=== PATIENT | female | born 1940 | race Caucasian/White ===

== ENCOUNTER 2017-06-06 06:43 | Day surgery (SDC) | payer MEDICARE, OTHER ==
[~2017-06-06 06:43] MED LIST: KETOROLAC TROMETHAMINE 0.45% 4 DROP/0.4 ML DROPERETTE OD PRN
[2017-06-06] MEDS ORDERED: CHONDR SU A NA/HYALUR INTRAOC KIT (SURGICARE) ONE (07:07)
[2017-06-06] MEDS ORDERED: EPINEPHRINE INJ/PF 1 MG/1 ML AMPULE ONE (07:07)
[2017-06-06] MEDS: BESIFLOXACIN HCL 0.6% OPH SUSP 5 ML BOTTLE OD PRN ×3 (07:17→08:21)
[2017-06-06] MEDS: TROPICAMIDE 1% OPH SOLN 3 ML OD PRN ×3 (07:17→07:37)
[2017-06-06] MEDS: TETRACAINE HCL 0.5% OPH SOLN 0.6 ML DROPERETTE OD PRN ×2 (07:17→07:52)
[2017-06-06] MEDS: CYCLOPENTOLATE 0.2%/PHENYLEPHRINE 1% OPH SOLN 2 ML OD PRN ×3 (07:17→07:37)
[2017-06-06] MEDS ORDERED: MIDAZOLAM 2 MG/2 ML INJ ONE (07:28)
[2017-06-06] MEDS: BUPIVACAINE HCL 0.75% INJ/PF (7.5 MG/1 ML) 10 ML SDV OD PRN ×2 (07:50→08:10)
[2017-06-06] MEDS: LIDOCAINE 4% INJ/PF (40 MG/ML) 5 ML AMPUL OD PRN ×2 (07:50→08:10)
--- NOTE | 2017-06-06 09:13 | [facility] OPERATIVE REPORT E ---
[facility] Operative Report NAME: RONALD CAMACHO AGE: 76Y DATE OF SURGERY: 06/06/2017 ROOM: PREOPERATIVE DIAGNOSIS: Cataract, right eye. POSTOPERATIVE DIAGNOSIS: Cataract, right eye. OPERATION: Phacoemulsification with posterior chamber intraocular lens, right eye. SURGEON: SOPHIE BRYAN M.D. ANESTHESIA: Topical with MAC with intraocular lidocaine. INDICATIONS FOR SURGERY: Difficulty reading road signs. Best corrected visual acuity 20/50. PROCEDURE: The patient was brought to the Operating Room and placed on the operative table. Following tetracaine drops, topical anesthesia was administered. This consisted of instrument wipe pledgets soaked in a solution of 4% Xylocaine mixed with 0.75% Marcaine in a 1:2 ratio. A 2 x 1 cm pledget was placed in the superior fornix. A 1 x 1 cm pledget was placed in the inferior fornix. The eye was patched shut for 5 minutes. The patch was removed. The eye was sterilely prepped and draped in the usual manner. Lid speculum was placed in the eye. The pledgets were removed. 4-0 black silk sutures were placed around the superior and the inferior rectus muscles to be used as traction. A conjunctival peritomy was made at the 10 o'clock position. Hemostasis was obtained with bipolar cautery. A posterior limbal groove was created using a crescent knife and dissected anteriorly towards the cornea. A sharp point blade was used to create a paracentesis site at the 2 o'clock position. A 2.4 mm keratome was used to enter the anterior chamber through the groove. Viscoelastic was injected into the anterior chamber. An anterior capsulotomy was performed using Utrata forceps in a capsulorrhexis fashion. Hydrodissection and hydrodelineation were performed. Phacoemulsification was performed in [id number]-kbk-hjupenz technique. A total of 4.98 CDE phaco time was used. Following this, the I/A unit was used to remove residual cortex. Viscoelastic was injected into the capsular bag. Intraocular lens model SN60WF, 20.0 diopters, serial number [id number] was placed in the capsular bag. The I/A unit was used to remove residual viscoelastic. The wound was seen to be watertight under high and low pressure, and no sutures were placed. The intraocular lens was well centered. The pressure was adjusted in the eye to normal pressure. The 4-0 black silk sutures and lid speculum were removed. The eye was shielded after Besivance drops were placed. The patient tolerated the procedure well and was sent to the Recovery Room in good condition. DICTATING PHYSICIAN: SOPHIE BRYAN M.D. DICTATING PHYSICIAN: SOPHIE BRYAN M.D. [id number] PHY#: [id number] ID: [id number] JOB#: [id number] ACCT: [id number] cc:SOPHIE BRYAN M.D. >
--- NOTE | 2017-06-06 09:19 | [facility] DISCHARGE SUMMARY E ---
[facility] Discharge Summary NAME: RONALD CAMACHO AGE: 76Y ADMITTED: 06/06/2017 DISCHARGED: HOSPITAL COURSE: The patient is a 76-year-old lady who underwent uneventful cataract extraction with intraocular lens implant right eye on 06/06/2017. She will be discharged to home. She is instructed to resume preoperative medications and take Tylenol as needed for discomfort, to keep her eye shielded, to use Durezol, ketorolac, and Vigamox at 3 p.m. and 8 p.m. Follow up in my office in one day. DICTATING PHYSICIAN: SOPHIE BRYAN M.D. [id number] PHY#: [id number] ID: [id number] JOB#: [id number] ACCT: [id number] cc:SOPHIE BRYAN M.D. >
[2017-06-06] MEDS ORDERED: LIDOCAINE 1% INJ-PF (10 MG/ML) 30 ML SDV ONE (11:23)
== END 2017-06-06 09:10 | disposition home or self-care (01) ==
LOC: SC 06:43
PROVIDERS: ATTEND Ophthalmology
PROC: 08RJ3JZ Replacement of Right Lens with Synthetic Substitute, Percutaneous Approach (ICD-10-PCS; principal; 2017-06-06 08:00)
DX: H25.813 Combined forms of age-related cataract, bilateral (principal); H35.363 Drusen (degenerative) of macula, bilateral; H04.123 Dry eye syndrome of bilateral lacrimal glands; K21.9 Gastro-esophageal reflux disease without esophagitis; Z79.899 Other long term (current) drug therapy; Z87.891 Personal history of nicotine dependence
CPT/HCPCS: 66984; V2632; J2250; J3490 ×4; A9270; J0171

== ENCOUNTER 2017-07-04 08:37 | Day surgery (SDC) | payer MEDICARE, OTHER ==
[~2017-07-04 08:37] MED LIST changes: +BESIFLOXACIN HCL 0.6% OPH SUSP 5 ML BOTTLE OS PRN; +BUPIVACAINE HCL 0.75% INJ/PF (7.5 MG/1 ML) 10 ML SDV OS PRN; +CYCLOPENTOLATE 0.2%/PHENYLEPHRINE 1% OPH SOLN 2 ML OS PRN; -KETOROLAC TROMETHAMINE 0.45% 4 DROP/0.4 ML DROPERETTE OD PRN; +KETOROLAC TROMETHAMINE 0.45% 4 DROP/0.4 ML DROPERETTE OS PRN; +LIDOCAINE 4% INJ/PF (40 MG/ML) 5 ML AMPUL OS PRN; +TETRACAINE HCL 0.5% OPH SOLN 0.6 ML DROPERETTE OS PRN; +TROPICAMIDE 1% OPH SOLN 3 ML OS PRN
[2017-07-04] MEDS ORDERED: EPINEPHRINE INJ/PF 1 MG/1 ML AMPULE ONE (09:09)
[2017-07-04] MEDS ORDERED: LIDOCAINE 1% INJ-PF (10 MG/ML) 30 ML SDV ONE (09:10)
[2017-07-04] MEDS ORDERED: CHONDR SU A NA/HYALUR INTRAOC KIT (SURGICARE) ONE (09:10)
[2017-07-04] MEDS: TROPICAMIDE 1% OPH SOLN 3 ML OS PRN ×3 (09:45→10:05)
[2017-07-04] MEDS: CYCLOPENTOLATE 0.2%/PHENYLEPHRINE 1% OPH SOLN 2 ML OS PRN ×3 (09:45→10:05)
[2017-07-04] MEDS: TETRACAINE HCL 0.5% OPH SOLN 0.6 ML DROPERETTE OS PRN ×2 (09:45→10:14)
[2017-07-04] MEDS: BESIFLOXACIN HCL 0.6% OPH SUSP 5 ML BOTTLE OS PRN ×4 (09:46→10:57)
[2017-07-04] MEDS ORDERED: MIDAZOLAM 2 MG/2 ML INJ ONE (10:12)
[2017-07-04] MEDS ORDERED: FENTANYL CITRATE INJ/PF 100 MCG/2 ML AMPUL ONE (10:13)
--- NOTE | 2017-07-04 11:08 | [facility] DISCHARGE SUMMARY E ---
[facility] Discharge Summary NAME: RONALD CAMACHO AGE: 76Y ADMITTED: 07/04/2017 DISCHARGED: 07/04/2017 PREOPERATIVE DIAGNOSIS: Cataract, left eye. POSTOPERATIVE DIAGNOSIS: Cataract, left eye. HOSPITAL COURSE: The patient is a 76-year-old lady who underwent uneventful cataract extraction with intraocular lens implant, left eye, on 07/04/2017. She will be discharged to home. She was instructed to resume preoperative medications, take Tylenol as needed for discomfort, to keep her eye shielded, to use Durezol, ketorolac, and Vigamox at 3 p.m. and 8 p.m., and to followup in my office in 1 day. DICTATING PHYSICIAN: SOPHIE BRYAN M.D. [id number] PHY#: [id number] ID: [id number] JOB#: [id number] ACCT: [id number] cc:SOPHIE BRYAN M.D. >
--- NOTE | 2017-07-04 11:09 | [facility] OPERATIVE REPORT E ---
[facility] Operative Report NAME: RONALD CAMACHO AGE: 76Y DATE OF SURGERY: 07/04/2017 ROOM: PREOPERATIVE DIAGNOSIS: Cataract, left eye. POSTOPERATIVE DIAGNOSIS: Cataract, left eye. PROCEDURE PERFORMED: Phacoemulsification with posterior chamber intraocular lens, left eye. SURGEON: Cherise Bryan MD ANESTHESIA: Topical with MAC. INDICATIONS FOR SURGERY: Difficulty with balance following cataract surgery in the right eye. Best corrected visual acuity 20/50. PROCEDURE: The patient was brought to the operating room and placed on the operative table. Following tetracaine drops, topical anesthesia was administered. This consisted of instrument wipe pledgets soaked in a solution of 4% Xylocaine mixed with 0.75% Marcaine in a 1:2 ratio. A 2 x 1 cm pledget was placed in the superior fornix. A 1 x 1 cm pledget was placed in the inferior fornix. The eye was patched shut for 5 minutes. The patch was removed. The eye was sterilely prepped and draped in the usual manner. Lid speculum was placed in the eye. The pledgets were removed. 4-0 black silk sutures were placed around the superior and the inferior rectus muscles to be used as traction. A conjunctival peritomy was made at the 10 o'clock position. Hemostasis was obtained with bipolar cautery. A posterior limbal groove was created using a crescent knife and dissected anteriorly towards the cornea. A sharp point blade was used to create a paracentesis site at the 2 o'clock position. A 2.4 mm keratome was used to enter the anterior chamber through the groove. Viscoelastic was injected into the anterior chamber. An anterior capsulotomy was performed using Utrata forceps in a capsulorrhexis fashion. Hydrodissection and hydrodelineation were performed. Phacoemulsification was performed in [id number]-[id number] technique. A total of 6.47 CDE phaco time was used. Following this, the I/A unit was used to remove residual cortex. Viscoelastic was injected into the capsular bag. Intraocular lens model SN60WF, 19.0 diopters, serial number [id number] was placed in the capsular bag. The I/A unit was used to remove residual viscoelastic. The wound was seen to be watertight under high and low pressure, and no sutures were placed. The intraocular lens was well centered. The pressure was adjusted in the eye to normal pressure. The 4-0 black silk sutures and lid speculum were removed. The eye was shielded after Besivance drops were placed. The patient tolerated the procedure well and was sent to the recovery room in good condition. DICTATING PHYSICIAN: CHERISE BRYAN M.D. [id number] PHY#: [id number] ID: [id number] JOB#: [id number] ACCT: [id number] cc:CHERISE BRYAN M.D. > MTDD
== END 2017-07-04 11:44 | disposition home or self-care (01) ==
LOC: SC 08:37
PROVIDERS: ATTEND Ophthalmology
PROC: 08RK3JZ Replacement of Left Lens with Synthetic Substitute, Percutaneous Approach (ICD-10-PCS; principal; 2017-07-04 10:30)
DX: H25.812 Combined forms of age-related cataract, left eye (principal); Z96.1 Presence of intraocular lens; K21.9 Gastro-esophageal reflux disease without esophagitis; Z79.899 Other long term (current) drug therapy; Z87.891 Personal history of nicotine dependence
CPT/HCPCS: 66984; V2632; J2250; J3490 ×4; A9270; J0171; J3010; 142

== ENCOUNTER 2018-07-10 12:09 | Emergency (ER) | payer MEDICARE, OTHER ==
[2018-07-10 12:59] LABS: ABSOLUTE EOSINOPHILS # (AUTO) 0.2 10^3/uL (0.0-0.6); ABSOLUTE LYMPHOCYTES (AUTO) 1.2 10^3/uL (0.5-4.7); ABSOLUTE MONOCYTES (AUTO) 0.5 10^3/uL (0.1-1.4); ABSOLUTE NEUT (AUTO) 8.1 10^3/uL (1.7-8.2); BASOPHILS % (AUTO) 0.4 % (0-2); EOSINOPHILS % (AUTO) 1.7 % (0-6); HEMATOCRIT 42.2 % (36.0-47.0); MEAN CORPUSCULAR HGB CONC 33.2 g/dL (32.0-36.0); MEAN CORPUSCULAR VOLUME 84 fl (80-97); MONOCYTES % (AUTO) 4.7 % (3-13); PLATELET COUNT 245 10^3/uL (150-450); RED BLOOD COUNT 5.01 10^6/uL (3.72-5.28); SEGMENTED NEUTROPHILS % (AUTO) 81.2 % (42-78); TOTAL CELLS COUNTED % (AUTO) 100 %
--- NOTE | 2018-07-10 13:08 | EKG REPORT ---
SEVERITY:- BORDERLINE ECG - SINUS RHYTHM BORDERLINE T ABNORMALITIES, INFERIOR LEADS : Confirmed by: John Bansal MD 10-Jul-2018 13:07:21
[2018-07-10 13:28] LABS: CREATINE KINASE MB 0.67 ng/mL (<4.55)
[2018-07-10 13:31] LABS: TROPONIN I < 0.012 ng/mL
[2018-07-10 13:32] LABS: ALANINE AMINOTRANSFERASE 18 U/L (9-52); ALBUMIN 4.3 g/dL (3.5-5.0); ALKALINE PHOSPHATASE 77 U/L (38-126); ANION GAP 8 (5-19); ASPARTATE AMINO TRANSFERASE 35 U/L (14-36); BILIRUBIN,DIRECT 0.1 mg/dL (0.0-0.4); BILIRUBIN,TOTAL 0.4 mg/dL (0.2-1.3); BLOOD UREA NITROGEN 19 mg/dL (7-20); CARBON DIOXIDE 25 mmol/L (22-30); CHLORIDE 107 mmol/L (98-107); CREATINE KINASE 42 U/L (30-135); GLUCOSE 139 mg/dL (75-110); POTASSIUM 4.3 mmol/L (3.6-5.0); SODIUM 140.4 mmol/L (137-145); TOTAL PROTEIN 7.2 g/dL (6.3-8.2)
[2018-07-10 14:06] LABS: APPEARANCE,URINE CLEAR; BILIRUBIN,URINE NEGATIVE (NEGATIVE); COLOR,URINE YELLOW; GLUCOSE, URINE NEGATIVE (NEGATIVE); KETONES,URINE NEGATIVE (NEGATIVE); LEUKOCYTE ESTERASE,URINE NEGATIVE (NEGATIVE); NITRITE,URINE NEGATIVE (NEGATIVE); PROTEIN,URINE NEGATIVE (NEGATIVE); URINE SPECIFIC GRAVITY 1.014; UROBILINOGEN,URINE NEGATIVE mg/dL (<2.0)
[2018-07-10] MEDS ORDERED: LISINOPRIL 5 MG TABLET PO ONE (14:17)
--- NOTE | 2018-07-10 16:02 | ER Document Report ---
ED Syncope and Near Syncope - General Chief Complaint: Near Syncope Stated Complaint: SYNCOPE Time Seen by Provider: 07/10/18 12:48 Primary Care Provider: ELLE CALVO, SHIPPING/RECEIVING MANAGER [Primary Care Provider] - Follow up as needed Notes: Patient says she was sitting and reading the pain upper this morning when she felt like she was going to lose consciousness and felt like she was going to . She never actually lost consciousness. She was able to get up and walk to another room. She felt her heart beating very hard and fast. This whole episode lasted about a minute. She is never had this before and is not there now. She is moving all 4 extremities without difficulty. She did have some pain in the left chest, towards the upper inner aspect of the left breast which she says she has had pain in that location for about 25 years. This is no different than previously. Denies any shortness of breath or difficulty breathing. No nausea or vomiting. No fever or chills. Has no history of any heart disease. Patient has had a hysterectomy. Hypertension on no current medications. Plans to see her PA Monday to have her blood pressure rechecked. Her only medication is Premarin. Patient thinks she may have been very anxious. She is only been for a couple of years. Does not indicate any problems with her marriage. TRAVEL OUTSIDE OF THE [place] IN LAST 30 DAYS: No - Related Data Allergies/Adverse Reactions: No Known Allergies Allergy (Verified 06/06/17 07:21) Past Medical History - Social History Smoking Status: Never Smoker Chew tobacco use (# tins/day): No Frequency of alcohol use: None Drug Abuse: None Family History: Reviewed & Not Pertinent Patient has suicidal ideation: No Patient has homicidal ideation: No - Past Medical History Cardiac Medical History: Denies: Hx Heart Attack, Hx Hypertension Pulmonary Medical History: Denies: Hx Asthma Neurological Medical History: Denies: Hx Cerebrovascular Accident, Hx Seizures GI Medical History: Denies: Hx Hepatitis, Hx Hiatal Hernia, Hx Ulcer Infectious Medical History: Denies: Hx Hepatitis Past Surgical History: Reports: Hx Hysterectomy Review of Systems - Review of Systems Notes: REVIEW OF SYSTEMS: CONSTITUTIONAL : Denies fever. EENT: Denies eye, ear, nose or mouth or throat pain or other symptoms. CARDIOVASCULAR: See HPI. RESPIRATORY: Denies cough, chest congestion, or shortness of breath. GASTROINTESTINAL: Denies abdominal pain or nausea, vomiting, or diarrhea. GENITOURINARY: Denies difficulty or painful urinating, urinary frequency, blood in urine. MUSCULOSKELETAL: Denies back or neck pain. Denies joint pain or swelling. SKIN: Denies rash or skin lesions. NEUROLOGICAL: Denies LOC or altered mental status. Denies sensory loss or motor deficits. ALL OTHER SYSTEMS REVIEWED AND NEGATIVE. Physical Exam - Vital signs Vitals: Resp BP Pulse Ox 18 185/76 H 98 07/10/18 13:01 07/10/18 13:01 07/10/18 13:01 Interpretation: Hypertensive - Minimal with systolics in the 60s and 70s.. No: Hypotensive Notes: PHYSICAL EXAMINATION: GENERAL: Well-appearing, in no acute distress. Anxious. HEAD: Atraumatic, normocephalic. EYES: Pupils equal round and reactive to light, extraocular movements intact. ENT: oropharynx clear without exudates. Moist mucous membranes. NECK: Normal range of motion, supple. LUNGS: Breath sounds clear and equal bilaterally. Very minimal tenderness of the left upper inner left breast. No masses. HEART: Regular rate and rhythm without murmurs. ABDOMEN: Soft, nontender. No guarding or rebound. No masses. BACK: No tenderness throughout entire back. EXTREMITIES: Normal range of motion without pain. NEUROLOGICAL: Normal speech, normal gait. Normal sensory, motor, and reflex exams. Awake, alert, and oriented x3. Cranial nerves normal. PSYCH: Normal mood, normal affect. SKIN: Warm, dry, no rashes. Course - Re-evaluation Re-evalutation: 07/10/18 20:55 Blood pressure remains somewhat elevated on the 5 mg of lisinopril. - Vital Signs Vital signs: Temp Pulse Resp BP Pulse Ox 18 162/77 H 93 07/10/18 16:01 07/10/18 16:01 07/10/18 16:01 - Laboratory Result Diagrams: 07/10/18 12:32 07/10/18 12:32 Laboratory results interpreted by me: 07/10/18 07/10/18 12:32 12:32 Seg Neutrophils % 81.2 H Lymphocytes % 12.0 L Glucose 139 H - EKG Interpretation by Ok EKG shows normal: Sinus rhythm Rate: Normal Rhythm: NSR Discharge - Discharge Clinical Impression: Near syncope, Hypertension Condition: Stable Disposition: HOME, SELF-CARE Additional Instructions: NEAR SYNCOPAL EPISODE: Syncope or near syncope (fainting or near-fainting) can occur from many different health problems. Or it can be a simple fainting spell requiring no treatment. It is safe for you to go home, but further evaluation will likely be necessary. Your work-up may include tests for internal bleeding, heart disease, medication problems, or near-strokes. Tests are not always required, however, depending on the nature of your problem. The warning signs of an impending faint include: dizziness, lightheadedness, nausea, hot flashes, tingling, and weakness. If this happens, lay down and put your feet up, then wait until all of these symptoms have passed before standing up again. If these episodes become recurrent, or if you develop chest pain, heart palpitations, mental confusion, blurred vision, or headache, then you should c all the physician, or go to the emergency room. HIGH BLOOD PRESSURE REQUIRING TREATMENT: Your blood pressure is high. This is called "hypertension." Today's reading was (normal is less than 140/90). Your history and exam suggest that this is not a temporary problem. You need treatment of your blood pressure. If left untreated, high blood pressure greatly increases your risk of heart attack and stroke. Please don't ignore this problem. If you have blood pressure medicine but aren't using it regularly, start taking it again. Some simple things you can do to help are: Get some aerobic exercise for at least 20 minutes on a daily basis. (See your doctor before beginning any new exercise program.) Eat a low-fat diet. Lose excess weight. Avoid salty foods and avoid adding salt to any of the foods you eat. Avoid diet pills, decongestants, "energizing" herbs, and other medicines that elevate blood pressure. There are many different medicines that treat blood pressure. If your medication causes unpleasant side effects, call your doctor. There are others you can try. Treating hypertension is a life-long investment in your health. ANGIOTENSIN CONVERTING ENZYME INHIBITOR MEDICATION: "JOSELITO inhibitor" drugs are used to lower high blood pressure (or to reduce the "work" of the heart in patients with heart failure). These drugs block an enzyme that makes your blood vessels constrict and makes you retain salt. The result is lower blood pressure. JOSELITO inhibitors cause few side effects. The most common side effect is a dry nagging cough. Occasionally, lightheadedness may occur while you get used to the medicine. Some patients may retain extra potassium (this is a problem if you are taking potassium supplements, potassium-containing salt substitutes, or a potassium-retaining drug such as triamterene, spironolactone, or amiloride). If you are taking lithium, the lithium level must be rechecked after starting an JOSELITO inhibitor. JOSELITO inhibitors should NOT be used during . Contact the doctor or return if you develop severe lightheadedness, wheeze, weakness, palpitations or other new symptoms. NORMAL EXAM AND WORKUP: At this time, except for your blood pressure being elevated, your examination and workup show no significant abnormality. No significant abnormal physical findings were noted. All laboratory, EKG, and imaging (x-ray, CT scans, ultrasound) studies that were ordered show no significant abnormality. Although your examination and all studies that were ordered showed no significant abnormal finding, there are no examinations and no studies that are 100% accurate. There is always the possibility that some abnormality could exist and not be detected with physical examination or within the limits and capabilities of laboratory and other studies. You should return or follow up as you were instructed on your visit today for further evaluation if your symptoms do not resolve. FOLLOW-UP CARE: If you have been referred to a physician for follow-up care, call the physicians office for an appointment as you were instructed or within the next two days. If you experience worsening or a significant change in your symptoms, notify the physician immediately or return to the Emergency Department at any time for re-evaluation. Keep the appointment that you have scheduled at your medical providers office on Monday. Prescriptions: Lisinopril [Prinivil 5 mg Tablet] 5 mg PO DAILY #10 tablet Referrals: ELLE CALVO NP [Primary Care Provider] - Follow up as needed
[2018-07-10 16:14] VITALS: BP 162/77
== END 2018-07-10 16:19 | disposition home or self-care (01) ==
LOC: ER 12:09
DX: R55 Syncope and collapse (principal); I10 Essential (primary) hypertension; Z90.710 Acquired absence of both cervix and uterus
CPT/HCPCS: 93005; 99283; 36415; 82553; 82550; 85025; 80053; 81001; 84484; 93010; A9270

== ENCOUNTER 2018-08-03 23:54 | Emergency (ER) | payer MEDICARE, OTHER ==
--- NOTE | 2018-08-04 | ER Document Report ---
ED Medical Screen (RME) - General Stated Complaint: WEAKNESS Time Seen by Provider: 08/03/18 23:55 Primary Care Provider: ELLE CALVO NP [Primary Care Provider] - Follow up as needed Notes: PT PRESENTS VIA EMS FOR HIGH BLOOD PRESSURE, NUMBNESS RIGHT SIDE OF FACE, LEFT LOWER LEG, WEAKNESS AND MARVIN, SYMPTOMS STARTED AT 2100. HX OF TIA LAST MONTH I have greeted and performed a rapid initial assessment of this patient. A comprehensive ED assessment and evaluation of the patient, analysis of test results and completion of the medical decision making process will be conducted by additional ED providers. TRAVEL OUTSIDE OF THE [place] IN LAST 30 DAYS: No - Related Data Allergies/Adverse Reactions: No Known Allergies Allergy (Verified 06/06/17 07:21) Past Medical History - Past Medical History Cardiac Medical History: Denies: Hx Heart Attack, Hx Hypertension Pulmonary Medical History: Denies: Hx Asthma Neurological Medical History: Denies: Hx Cerebrovascular Accident, Hx Seizures Renal/ Medical History: Denies: Hx Peritoneal Dialysis GI Medical History: Denies: Hx Hepatitis, Hx Hiatal Hernia, Hx Ulcer Infectious Medical History: Denies: Hx Hepatitis Past Surgical History: Reports: Hx Hysterectomy. Denies: Hx Mastectomy, Hx Open Heart Surgery, Hx Pacemaker Physical Exam - Vital signs Vitals: Pulse Ox 97 08/04/18 00:19 Course - Vital Signs Vital signs: Temp Pulse Resp BP Pulse Ox 88 16 213/88 H 98 08/04/18 00:57 08/04/18 00:57 08/04/18 00:57 08/04/18 00:57 - Laboratory Result Diagrams: 08/04/18 01:30 08/04/18 01:30 Doctor's Discharge - Discharge Referrals: ELLE CALVO NP [Primary Care Provider] - Follow up as needed
[2018-08-04] MEDS ORDERED: HYDROCHLOROTHIAZIDE 25 MG TABLET PO ONE (00:33)
--- NOTE | 2018-08-04 00:35 | RADIOLOGY REPORT (SQ) ---
EXAM DESCRIPTION: CT HEAD WITHOUT IV CONTRAST COMPLETED DATE/TME: 08/03/2018 23:56 CLINICAL HISTORY: 77 years, Female, MARVIN, NUMBNESS, ? STROKE SYMPTOMS Technique: Contiguous axial images of the brain were obtained without the administration of intravenous contrast. Coronal and sagittal reformats obtained and reviewed. This exam was performed according to our departmental dose-optimization program which includes use of Automated Exposure Control, adjustment of the mA and/or kV according to patient size and/or use of iterative reconstruction technique. Findings: Brain: No hemorrhage. No territorial infarct. No mass effect. No herniation. Ventricles: Within normal limits for patient's age. Bones: No acute osseous abnormality. Paranasal sinuses: Unremarkable. Mastoid air cells: Unremarkable. Soft tissues: No acute abnormality. IMPRESSION: No acute intracranial abnormalities.
--- NOTE | 2018-08-04 00:55 | RADIOLOGY REPORT (SQ) ---
EXAM DESCRIPTION: XR CHEST 1 VIEW COMPLETED DATE/TME: 08/03/2018 23:56 CLINICAL HISTORY: 77 years, Female, MARVIN, NUMBNESS, ? STROKE SYMPTOMS COMPARISON: None. NUMBER OF VIEWS: TECHNIQUE: LIMITATIONS: None. FINDINGS: Somewhat limited examination due to overexposure of the x-ray. No evidence of pulmonary infiltrate or pleural effusion. The heart and mediastinum are unremarkable. Pulmonary vascularity appears normal. IMPRESSION: No acute finding. copyright 2010 [employer]- All Rights Reserved
[2018-08-04] MEDS ORDERED: LISINOPRIL 10 MG TABLET PO ONE (01:38)
[2018-08-04 01:41] LABS: ABSOLUTE BASOPHILS # (AUTO) 0.1 10^3/uL (0.0-0.2); ABSOLUTE EOSINOPHILS # (AUTO) 0.2 10^3/uL (0.0-0.6); ABSOLUTE LYMPHOCYTES (AUTO) 1.6 10^3/uL (0.5-4.7); ABSOLUTE MONOCYTES (AUTO) 0.5 10^3/uL (0.1-1.4); ABSOLUTE NEUT (AUTO) 8.5 10^3/uL (1.7-8.2); BASOPHILS % (AUTO) 1.1 % (0-2); EOSINOPHILS % (AUTO) 1.8 % (0-6); HEMATOCRIT 42.1 % (36.0-47.0); HEMOGLOBIN 14.2 g/dL (12.0-15.5); LYMPHOCYTES % (AUTO) 14.9 % (13-45); MEAN CORPUSCULAR HEMOGLOBIN 28.1 pg (27.0-33.4); MEAN CORPUSCULAR HGB CONC 33.7 g/dL (32.0-36.0); MEAN CORPUSCULAR VOLUME 83 fl (80-97); MONOCYTES % (AUTO) 4.9 % (3-13); PLATELET COUNT 275 10^3/uL (150-450); RED BLOOD COUNT 5.05 10^6/uL (3.72-5.28); SEGMENTED NEUTROPHILS % (AUTO) 77.3 % (42-78); TOTAL CELLS COUNTED % (AUTO) 100 %
[2018-08-04 01:44] LABS: INTERNATIONAL RATION (INR) 0.94
[2018-08-04 01:45] LABS: PARTIAL THROMBOPLASTIN TIME 25.6 SEC (23.5-35.8)
[2018-08-04 02:00] LABS: ALANINE AMINOTRANSFERASE 23 U/L (9-52); ALBUMIN 4.3 g/dL (3.5-5.0); ALKALINE PHOSPHATASE 92 U/L (38-126); ANION GAP 12 (5-19); ASPARTATE AMINO TRANSFERASE 17 U/L (14-36); BILIRUBIN,DIRECT 0.1 mg/dL (0.0-0.4); BILIRUBIN,TOTAL 0.3 mg/dL (0.2-1.3); BLOOD UREA NITROGEN 25 mg/dL (7-20); CALCIUM 9.5 mg/dL (8.4-10.2); CARBON DIOXIDE 22 mmol/L (22-30); CHLORIDE 108 mmol/L (98-107); CREATINE KINASE 42 U/L (30-135); GLUCOSE 129 mg/dL (75-110); POTASSIUM 4.1 mmol/L (3.6-5.0); SODIUM 141.6 mmol/L (137-145); TOTAL PROTEIN 7.2 g/dL (6.3-8.2)
[2018-08-04 03:34] LABS: CREATINE KINASE MB 0.89 ng/mL (<4.55); TROPONIN I < 0.012 ng/mL
--- NOTE | 2018-08-04 04:09 | ER Document Report ---
ED General - General Chief Complaint: High Blood Pressure Stated Complaint: WEAKNESS Time Seen by Provider: 08/03/18 23:55 Primary Care Provider: ELLE CALVO, PUBLICITY CONSULTANT [NURSE PRACTITIONER] - Follow up as needed Notes: Patient is a 77-year-old female who presents with complaint of onset of high blood pressure. She says that about a month ago she had an episode where she almost passed out. At that time they noticed that her blood pressure is running high. She followed up with a nurse practitioner at urgent care. She had been started on lisinopril 5 mg but her blood pressure continue to run high therefore they stopped this and started on propranolol. She says since starting propranolol her blood pressure is usually high in the evenings and in the morning but then she takes the propranolol in the morning and her blood pressure is better throughout most the day before becoming high again in the evening. She says since starting propranolol is made her feel very sleepy and unwell. Said today her blood pressure got significantly higher again and she started having numbness type sensation in the left side of her face and into her left leg. She denies any chest pain. She denies any weakness in her arms or legs. No facial droop. She had some headache. She says that she is noticed that she gets these headaches whenever her blood pressure gets high. She has no other medical problems and is otherwise healthy. She does not take any other medications other than a daily aspirin. TRAVEL OUTSIDE OF THE [place] IN LAST 30 DAYS: No - Related Data Allergies/Adverse Reactions: No Known Allergies Allergy (Verified 06/06/17 07:21) Past Medical History - Social History Smoking Status: Unknown if Ever Smoked Frequency of alcohol use: None Drug Abuse: None Family History: Reviewed & Not Pertinent Patient has suicidal ideation: No Patient has homicidal ideation: No - Past Medical History Cardiac Medical History: Denies: Hx Heart Attack, Hx Hypertension Pulmonary Medical History: Denies: Hx Asthma Neurological Medical History: Denies: Hx Cerebrovascular Accident, Hx Seizures Renal/ Medical History: Denies: Hx Peritoneal Dialysis GI Medical History: Denies: Hx Hepatitis, Hx Hiatal Hernia, Hx Ulcer Infectious Medical History: Denies: Hx Hepatitis Past Surgical History: Reports: Hx Hysterectomy. Denies: Hx Mastectomy, Hx Open Heart Surgery, Hx Pacemaker Review of Systems - Review of Systems Notes: My Normal Review Basic REVIEW OF SYSTEMS: CONSTITUTIONAL : Denies fever, chills, or sweats. Denies recent illness. EENT: Denies eye, ear, throat, or mouth pain or symptoms. Denies nasal or sinus congestion. CARDIOVASCULAR: Denies chest pain. RESPIRATORY: Denies cough, cold, or chest congestion. Denies shortness of breath, difficulty breathing, or wheezing. GASTROINTESTINAL: Denies abdominal pain. Denies nausea, vomiting, or diarrhea. GENITOURINARY: Denies difficulty urinating, painful urination, burning, frequency, or blood in urine. MUSCULOSKELETAL: Denies neck or back pain or joint pain or swelling. SKIN: Denies rash or skin lesions. NEUROLOGICAL: Denies altered mental status or loss of consciousness. Has a headache. Denies weakness or paralysis or loss of use of either side. Denies problems with gait or speech. Numbness into the left side of face and into left leg. ALL OTHER SYSTEMS REVIEWED AND NEGATIVE. Physical Exam - Vital signs Vitals: Pulse Ox 97 08/04/18 00:19 - Notes Notes: General Appearance: Well nourished, alert, cooperative, no acute distress, no obvious discomfort. Well appearing. Vitals: reviewed, See vital signs table. Head: no swelling or tenderness to the head Eyes: PERRL, EOMI, Conjuctiva clear Mouth: No decreasd moisture Lungs: No wheezing, No rales, No rhonci, No accessory muscle use, good air exchange bilaterally. Heart: Normal rate, Regular rythm, No murmur, no rub Abdomen: Normal BS, soft, No rigidity, No abdominal tenderness, No guarding, no rebound, no abdominal masses, no organomegaly Extremities: strength 5/5 in all extremities, good pulses in all extremities, no swelling or tenderness in the extremities, no edema. Skin: warm, dry, appropriate color, no rash Neuro: speech clear, oriented x 3, normal affect, responds appropriately to questions. Cranial nerves II through XII are intact intact. Patient says she feels numbness left side of her face however she can feel me touch the left side of face without difficulty. Good strength in all 4 extremities. She is able to stand and maintain balance without difficulty. Course - Re-evaluation Re-evalutation: 08/04/18 04:08 Since patient's blood pressure has been treated she says the numbness in the left side of her face and into her arm is completely gone. She says that is much better. She said the only thing that she feels now is a "weird feeling" in the right side of her head. She says she says it is not a pain. She says it just feels odd. Patient has no focal neurologic deficits on exam. I talked to the patient about trial on outpatient blood pressure medication versus MRI this morning. Patient says she is not sure what she wants to do. She is having difficult time making decision. I informed her I do not think that she is having a stroke at this time however if she still concerned about the sensation she feeling in her head then we should go forward with an MRI. Patient says that she wants to wait. I will reassess the patient in 2 hours to see how she is feeling. I that time we will rediscuss her options. 08/04/18 06:05 Patient was go forward with MRI of her head. She continues not have any further neurologic symptoms in her arms face or legs. She continues to feel this "odd feeling" in her head. This could be anxiety stress related however being the patient is of older age she did have early paresthesias MRI is acceptable test to obtain to make sure she has no underlying signs of stroke. If MRI is negative the patient will be discharged home. We will have her stop the propranolol and start the new medications that I will prescribe which seemed to better control her blood pressure. It appears that her blood pressure starts to get high at nighttime and into the morning until she takes the morning propranolol. Since starting propranolol it has made her feel unwell and very tired and sleepy which is a common side effect of this medication. Informed patient that we will stop this medication and switch her over to different blood pressure medications. Patient agrees with plan. Patient did tolerate the chlorothiazide well here; however, patient says that she used to be on this medication and it eventually did cause some problems for which she does not remember and therefore she prefers not to be on this medication. 08/04/18 07:04 08/05/18 08:31 Patient's MRI was negative. Patient was discharged home. Dictation of this chart was performed using voice recognition software; th erefore, there may be some unintended grammatical errors. - Vital Signs Vital signs: Temp Pulse Resp BP Pulse Ox 98.4 F 69 16 137/59 H 96 08/04/18 11:02 08/04/18 11:02 08/04/18 11:02 08/04/18 11:02 08/04/18 11:02 - Laboratory Result Diagrams: 08/04/18 01:30 08/04/18 01:30 Laboratory results interpreted by me: 08/04/18 08/04/18 01:30 01:30 WBC 11.0 H Absolute Neutrophils 8.5 H Chloride 108 H BUN 25 H Glucose 129 H - EKG Interpretation by Me Additional EKG results interpreted by me: 08/04/18 06:48 EKGs reviewed and interpreted by me. EKG shows a paced rhythm with a rate of [address] segment changes. No peak T waves. RI interval within normal range. QRS duration and QT intervals are prolonged. Old EKG for comparison is from June 13, 2018. Discharge - Discharge Clinical Impression: Paresthesia Hypertension Qualifiers: Hypertension type: unspecified Qualified Code(s): I10 - Essential (primary) hypertension Disposition: HOME, SELF-CARE Additional Instructions: PLease stop taking the propranolol. Please start taking the amlodipine and lisinopril as prescribed. Please follow up with your doctor at your upcoming appointment. Please return to the ER immediately if you have a severe headache. weakness or numbness into your extremities, chest pain, difficulty breathing,or have any concerns. Prescriptions: RX: Amlodipine Besylate [Norvasc 5 mg Tablet] 5 mg PO DAILY #30 tablet RX: Lisinopril [Prinivil 10 mg Tablet] 10 mg PO QPM #30 tablet Referrals: ELLE CALVO, PUBLICITY CONSULTANT [NURSE PRACTITIONER] - Follow up as needed
[2018-08-04] MEDS ORDERED: MIDAZOLAM 2 MG/2 ML INJ IV ONE ×2 (06:02→08:45)
[2018-08-04] MEDS ORDERED: AMLODIPINE BESYLATE 5 MG TABLET PO ONE (07:39)
--- NOTE | 2018-08-04 07:39 | EKG REPORT ---
SEVERITY:- NORMAL ECG - SINUS RHYTHM : Confirmed by: John Bansal MD 04-Aug-2018 07:38:57
--- NOTE | 2018-08-04 09:51 | RADIOLOGY REPORT (SQ) ---
EXAM DESCRIPTION: MRI HEAD WITHOUT COMPLETED DATE/TIME: 08/04/2018 9:30 am REASON FOR STUDY: numbness to face, head pressure COMPARISON: CT brain, 08/04/2018 TECHNIQUE: Multiplanar imaging includes non-contrasted T1, T2, FLAIR, and diffusion with ADC map seq uences. Images stored on PACS. LIMITATIONS: None. FINDINGS: ANATOMY: No anomalies. Normal vascular flow voids. Pituitary fossa normal. CSF SPACES: Normal in size and contour. No hemorrhage. CEREBRUM: Sulci and gyri normal in size and contour. Normal white matter signal on FLAIR imaging. No evidence of hemorrhage, mass, or extraaxial fluid collection. POSTERIOR FOSSA: No signal alteration. No hemorrhage. No edema, masses or mass effect. Internal dian tory canals, cerebello-pontine angles, mastoids normal. DIFFUSION IMAGING: Negative for acute or sub-acute infarction. ORBITS: No masses. Globes normal. PARANASAL SINUSES: No fluid levels. Mucosa normal. OTHER: No other significant finding. IMPRESSION: No noncontrast MR abnormality of the brain. No evidence of acute diffusion restricting infarction. EVIDENCE OF ACUTE STROKE: NO. TECHNICAL DOCUMENTATION: JOB ID: [id number] [employer]- All Rights Reserved Reading location - IP/workstation name: [email or web address]
--- NOTE | 2018-08-04 10:53 | ER Document Report ---
Doctor's Note Notes: 08/04/18 10:53 Care of this patient was taken over at the beginning of my shift. Disposition is already been decided, pending a normal MRI brain. Patient was seen and reevaluated. She has absolutely no symptoms, is feeling improved. Her current blood pressure is 135/69. MRI was reviewed. It revealed no acute or old a bnormality apparent of the brain. Patient feels comfortable with medications at discharge, will follow up with primary care. She is to return to the ED with worsening.
[2018-08-04 11:07] VITALS: BP 137/59
== END 2018-08-04 11:13 | disposition home or self-care (01) ==
LOC: ER 23:54
DX: I10 Essential (primary) hypertension (principal); R20.2 Paresthesia of skin; R55 Syncope and collapse; Z90.710 Acquired absence of both cervix and uterus
CPT/HCPCS: 93005; 99284; 36415; 82553; 82550; 85025; 85610; 85730; 80053; 84484; 70551; 71045; 70450; 93010; A9270 ×2